=== PATIENT | female | born 1960 | race Two or more races ===

== ENCOUNTER 2020-07-31 11:17 | Observation (INO) | payer OTHER, MEDICARE ==
[~2020-07-31] VITALS: Ht 167.6 cm; Wt 99.9 kg
--- NOTE | 2020-07-31 11:45 | NUR ---
NO ANSWER IN ATTEMPT TO RM FROM LOBBY
[2020-07-31 11:48] LABS: BASOPHILS # (AUTO) 0.02 x10^3/uL (0-0.1); BASOPHILS % (AUTO) 0 % (0-1); EOSINOPHILS % (AUTO) 1 % (1-7); LYMPHOCYTES # (AUTO) 1.48 x10^3/uL (1-3.4); LYMPHOCYTES % (AUTO) 14 % (22-44); MD NO; MEAN CORPUSCULAR HGB CONC 33.9 g/dL (32.4-35.8); MEAN CORPUSCULAR VOLUME 88.4 fL (80-100); MEAN PLATELET VOLUME 7.5 fL (7.4-10.4); MONOCYTES % (AUTO) 4 % (2-9); NEUTROPHILS # (AUTO) 8.74 x10^3/uL (1.8-6.8); NEUTROPHILS % (AUTO) 81 % (42-75); PLATELET COUNT 372 x10^3/uL (130-400); RED BLOOD COUNT 4.17 x10^6/uL (3.82-5.3); RED CELL DISTRIBUTION WIDTH 12.9 % (9.6-15.2)
--- NOTE | 2020-07-31 11:56 | NUR ---
PT ROOMED, C/O N/V AND DIZZINESS SINCE YESTERDAY AFTER DRINKING PRICKLY PEAR JUICE DURING THE DAY. PLACED ON CARDIAC AND VITALS MONITORS. FALL PRECAUTIONS IN PLACE. CALL LIGHT WITHIN REACH.
[2020-07-31 12:01] LABS: CHLORIDE 94 mmol/L (98-107)
[2020-07-31 12:11] LABS: ALBUMIN 3.7 g/dL (3.4-5.0); ANION GAP 11 mmol/L (5-15); CREATININE 0.84 mg/dL (0.55-1.02); TROPONIN I < 0.015 ng/mL (0.000-0.045)
[2020-07-31] MEDS ORDERED: ONDANSETRON 2MG/ML, 2ML IVPush ONE (12:30)
[2020-07-31] MEDS ORDERED: MECLIZINE CHEWABLE 25 MG TAB PO ONE (12:30)
[2020-07-31] MEDS ORDERED: ONDANSETRON 2MG/ML, 2ML ONE (12:56)
[2020-07-31] MEDS ORDERED: MECLIZINE CHEWABLE 25 MG TAB ONE (12:59)
[2020-07-31] MEDS ORDERED: SODIUM CHLORIDE 0.9% 1,000ML IVBOLUS ONE (13:00)
--- NOTE | 2020-07-31 13:06 | NUR ---
MEDICATED PER MAR, VSS. FALL PRECAUTIONS IN PLACE. CALL LIGHT WITHIN REACH.
--- NOTE | 2020-07-31 13:48 | NUR ---
ASSISTED PT TO RESTROOM.
[2020-07-31] MEDS ORDERED: MELATONIN 5 MG TABLET PO PRN (14:00)
[2020-07-31] MEDS ORDERED: BACLOFEN 10 MG TABLET PO PRN (14:00)
[2020-07-31] MEDS ORDERED: LABETALOL 5MG/ML, 20ML IVPush PRN (14:00)
[2020-07-31] MEDS ORDERED: GUAIFENESIN/DM 200-20MG, 10ML UDC PO PRN (14:00)
[2020-07-31] MEDS ORDERED: ACETAMINOPHEN 325 MG TABLET PO PRN (14:00)
[2020-07-31] MEDS ORDERED: GABAPENTIN 300 MG CAPSULE PO PRN (14:00)
[2020-07-31] MEDS ORDERED: BUTALB/APAP/CAFFEINE 50MG/325MG/40MG PO PRN (14:00)
[2020-07-31] MEDS ORDERED: morphine SULFATE 10 MG/ML, 1ML IVPush PRN (14:00)
[2020-07-31] MEDS ORDERED: ONDANSETRON ODT 4 MG PO PRN (14:00)
[2020-07-31] MEDS ORDERED: ONDANSETRON 2MG/ML, 2ML IVPush PRN (14:00)
[2020-07-31] MEDS ORDERED: hydrALAzine 20 MG/ML, 1ML IVPush PRN (14:00)
[2020-07-31 14:15] LABS: FREE T4 (FREE THYROXINE) 0.87 ng/dL (0.76-1.46)
--- NOTE | 2020-07-31 14:45 | NUR ---
ASSISTED PT TO RESTROOM.
[2020-07-31] MEDS ORDERED: ENOXAPARIN 40 MG/0.4 ML ONE (14:47)
[2020-07-31] MEDS: ENOXAPARIN 40 MG/0.4 ML SQ SCH (14:48)
--- NOTE | 2020-07-31 15:53 | NUR ---
REPORT GIVEN TO MIRANDA BOLANOS.
[2020-07-31 16:26] VITALS: BP 132/76
[2020-07-31 16:28] VITALS: BP 132/76
[2020-07-31] MEDS ORDERED: ALLO100T30 PO (17:04)
[2020-07-31] MEDS ORDERED: COLC0.6C3 PO (17:04)
[2020-07-31] MEDS ORDERED: METO25TA4 PO (17:04)
[2020-07-31 18:06] LABS: MICROSCOPIC NOT IND
[2020-07-31] MEDS ORDERED: MECLIZINE 25 MG TABLET PO PRN (19:00)
[2020-07-31 21:35] VITALS: BP 115/67
[2020-08-01 01:31] VITALS: BP 130/75
[2020-08-01] MEDS: BUTALB/APAP/CAFFEINE 50MG/325MG/40MG PO PRN ×2 (01:35→05:49)
[2020-08-01 06:15] LABS: BASOPHILS # (AUTO) 0.06 x10^3/uL (0-0.1); BASOPHILS % (AUTO) 1 % (0-1); EOSINOPHILS # (AUTO) 0.21 x10^3/uL (0-0.4); EOSINOPHILS % (AUTO) 3 % (1-7); LYMPHOCYTES # (AUTO) 2.56 x10^3/uL (1-3.4); LYMPHOCYTES % (AUTO) 38 % (22-44); MD NO; MEAN CORPUSCULAR HGB CONC 33.4 g/dL (32.4-35.8); MEAN CORPUSCULAR VOLUME 89.8 fL (80-100); MEAN PLATELET VOLUME 7.7 fL (7.4-10.4); MONOCYTES # (AUTO) 0.45 x10^3/uL (0.2-0.8); MONOCYTES % (AUTO) 7 % (2-9); NEUTROPHILS % (AUTO) 51 % (42-75); PLATELET COUNT 337 x10^3/uL (130-400); RED BLOOD COUNT 3.99 x10^6/uL (3.82-5.3); RED CELL DISTRIBUTION WIDTH 12.9 % (9.6-15.2)
[2020-08-01 06:25] LABS: ALBUMIN 3.4 g/dL (3.4-5.0); ANION GAP 5 mmol/L (5-15); CHLORIDE 110 mmol/L (98-107)
[2020-08-01 06:30] LABS: ALANINE AMINOTRANSFERASE 26 U/L (12-78); ALKALINE PHOSPHATASE 68 U/L (45-117); BILIRUBIN,TOTAL 0.3 mg/dL (0.2-1.0); CALCIUM 8.6 mg/dL (8.5-10.1); CREATININE 0.87 mg/dL (0.55-1.02); TOTAL PROTEIN 8.1 g/dL (6.4-8.2)
[2020-08-01 06:33] VITALS: BP 126/78
[2020-08-01 07:02] LABS: TROPONIN I < 0.015 ng/mL (0.000-0.045)
[2020-08-01] MEDS ORDERED: MECLIZINE 25 MG TABLET PO PRN (08:30)
[2020-08-01] MEDS ORDERED: REGADENOSON 0.4 MG/5 ML SYRINGE ONE (08:37)
[2020-08-01] MEDS ORDERED: SENNA/DOCUSATE TABLET PO SCH (09:00)
[2020-08-01 12:10] VITALS: BP 123/87
[2020-08-01] MEDS ORDERED: MECL-101 PO (14:22)
[2020-08-01] MEDS: ENOXAPARIN 40 MG/0.4 ML SQ SCH (15:28)
[2020-08-01] MEDS ORDERED: ALLOPURINOL 100 MG TABLET PO SCH (21:00)
== END 2020-08-01 16:07 | disposition home or self-care (01) ==
LOC: ED 13:09 → EDIP 13:16 → INTOOBSV 13:16 → 4WST 16:21
PROVIDERS: ADMIT Family Medicine; ATTEND Family Medicine
DX: R42 Dizziness and giddiness (principal); R11.2 Nausea with vomiting, unspecified; E87.1 Hypo-osmolality and hyponatremia; R73.9 Hyperglycemia, unspecified; E83.42 Hypomagnesemia; R94.6 Abnormal results of thyroid function studies; D72.829 Elevated white blood cell count, unspecified; I10 Essential (primary) hypertension; I48.91 Unspecified atrial fibrillation; M10.9 Gout, unspecified; E66.9 Obesity, unspecified; Z79.899 Other long term (current) drug therapy
CPT/HCPCS: 36415; 71045; 78452; 80048; 80053; 81003; 82040; 82962; 83036; 83735; 83880; 84439; 84443; 84481; 84484; 85025; 93005; 93017; 93306; 96361; 96372; 96374; 97161; 97165; 99285; A9502; C9898; G0378; J1650; J2405; J2785; J7030